=== PATIENT | male | born 1990 | race African-American/Black ===

== ENCOUNTER 2016-09-23 14:16 | Emergency (ER) | payer BC ==
[~2016-09-23] VITALS: Ht 175.3 cm; Wt 63.5 kg
--- NOTE | 2016-09-23 14:51 | PHYS DOC ---
Adult General Chief Complaint Chief Complaint: ABDOMINAL PAIN HPI HPI Patient is a 26-year-old male who states "I think I might have chlamydia again" . Patient was "with a girl" a week or so ago and now he has some pain in his right groin and around his right testicle and also some discomfort when he urinates. Denies discharge. Denies hematuria. The last time he had this, he was diagnosed with chlamydia, he was treated with antibiotics and his symptoms cleared up. Patient denies fever or chills. Denies nausea or vomiting. Patient is in good general health, no known drug allergies. Review of Systems Review of Systems Constitutional: Denies fever or chills [] GI: Denies abdominal pain, nausea, vomiting, bloody stools or diarrhea [] : As in history of present illness Allergies Allergies Allergies Coded Allergies Type Severity Reaction Last Updated Verified No Known Drug Allergies 09/23/16 No Physical Exam Physical Exam Constitutional: Well developed, well nourished, no acute distress, non-toxic appearance. Alert, mentating normally. HENT: Normocephalic, atraumatic, bilateral external ears normal, nose normal. [ ] Eyes: conjunctiva normal, no discharge. [] Neck: Normal range of motion, no stridor. [] : Normal circumcised male, testes descended bilaterally. No swelling of scrotum or testicles. Mildly tender along the right epididymis which is not enlarged. No palpable or visible abnormalities of the . Skin: Warm, dry, no erythema, no rash. [] Extremities: No tenderness, no cyanosis, no clubbing, ROM intact, no edema. [] Neurologic: Alert and oriented X 3, normal motor function, normal sensory function, no focal deficits noted. [] EKG EKG [] Radiology/Procedures Radiology/Procedures [] Course & Med Decision Making Course & Med Decision Making Pertinent Labs and Imaging studies reviewed. (See chart for details) Urine was sent for GC and chlamydia. I gave the option to the patient of waiting for results are being treated today, he chose the latter. See instructions for plan. [] Dragon Disclaimer Dragon Disclaimer This chart was dictated in whole or in part using Voice Recognition software in a busy, high-work load, and often noisy Emergency Department environment. It may contain unintended and wholly unrecognized errors or omissions. Departure Departure: Impression: Primary Impression: STD (male) Disposition: 01 HOME, SELF-CARE Condition: IMPROVED Patient Instructions: Chlamydia Test, Gonorrhea Culture Additional Instructions: Today in the ER, you were treated for gonorrhea and chlamydia. If the test comes back positive, any recent partner should be treated. Use condoms for 1 week to make sure the antibiotics have had a chance to work. FAM MAK MD Sep 23, 2016 14:51
[2016-09-23 15:07] LABS: BACTERIA,URINE 0 /HPF (0-FEW); BILIRUBIN,URINE NEG (NEG); CLARITY,URINE CLEAR; COLOR,URINE YELLOW; GLUCOSE,URINE NEG (NEG); NITRITE,URINE NEG (NEG); SQUAMOUS EPITHELIAL CELL,UR OCC /LPF; UROBILINOGEN,URINE 0.2 mg/dL (0.2 mg/dL)
[2016-09-23 15:08] LABS: RBC,URINE RARE /HPF (0-2); WBC,URINE OCC /HPF (0-4)
[2016-09-23] MEDS ORDERED: AZITHROMYCIN 250 MG TABLET. PO ONE (15:15)
[2016-09-23] MEDS ORDERED: cefTRIAXone IM 250 MG VIAL IM ONE (15:15)
== END 2016-09-23 15:21 | disposition home or self-care (01) ==
LOC: ER 14:16
DX: A64 Unspecified sexually transmitted disease (principal)
CPT/HCPCS: 81001; 96372; 99283; J0456; J0696

== ENCOUNTER 2016-09-28 07:15 | Emergency (ER) | payer BC ==
[~2016-09-28] VITALS: Ht 175.3 cm; Wt 63.5 kg
[2016-09-28 07:20] VITALS: BP 145/82
--- NOTE | 2016-09-28 07:36 | PHYS DOC ---
Past History Past Medical History: No Pertinent History Past Surgical History: No Surgical History Smoking: Cigarettes Alcohol Use: Rarely Drug Use: None Adult General Chief Complaint Chief Complaint: STD exposure HPI HPI 26-year-old male presenting to the emergency department today after being exposed to an STD. He reports he recently had intercourse with a female that currently has symptoms of an STD. He recently got treated about a week ago and returns for another treatment. He denies any drainage fevers or chills. Onset today. Location tract. Duration intermittent. No alleviating factors present. Review of systems is negative for drainage rashes ulcerations or lesions. All other review of systems is negative unless otherwise noted in history of present illness. ED course: 26-year-old gentleman presenting after being exposed to an STD. He was given medications for treatment prophylactically then subsequently discharged home. The patient was then discharged home in stable condition to follow up with their primary care physician over the next 2-3 days. They were to return if their symptoms worsened or if they were concerned for any reason. [id number] discharge instructions and return precautions were given. Patient' s questions were answered to their satisfaction. Patient is comfortable plan. Review of Systems Review of Systems SEE ABOVE. Allergies Allergies Allergies Coded Allergies Type Severity Reaction Last Updated Verified No Known Drug Allergies 09/23/16 No Physical Exam Physical Exam Constitutional: Well developed, well nourished, no acute distress, non-toxic appearance. [] HENT: Normocephalic, atraumatic, bilateral external ears normal, oropharynx moist, no oral exudates, nose normal. [] Eyes: PERRLA, EOMI, conjunctiva normal, no discharge. [] Neck: Normal range of motion, no tenderness, supple, no stridor. [] Cardiovascular:Heart rate regular rhythm, no murmur [] Lungs & Thorax: Bilateral breath sounds clear to auscultation [] Abdomen: Bowel sounds normal, soft, no tenderness, no masses, no pulsatile masses. [] Skin: Warm, dry, no erythema, no rash. [] Back: No tenderness, no CVA tenderness. [] Extremities: No tenderness, no cyanosis, no clubbing, ROM intact, no edema. [] Neurologic: Alert and oriented X 3, normal motor function, normal sensory function, no focal deficits noted. [] Psychologic: Affect normal, judgement normal, mood normal. [] EKG EKG [] Radiology/Procedures Radiology/Procedures [] Course & Med Decision Making Course & Med Decision Making Pertinent Labs and Imaging studies reviewed. (See chart for details) [] Dragon Disclaimer Dragon Disclaimer This chart was dictated in whole or in part using Voice Recognition software in a busy, high-work load, and often noisy Emergency Department environment. It may contain unintended and wholly unrecognized errors or omissions. Departure Departure: Impression: Primary Impression: STD exposure Disposition: HOME, SELF-CARE Condition: STABLE Referrals: PCP,NO (PCP) Patient Instructions: Safe Sex Additional Instructions: Thank you for allowing us to participate in your care today. Followup with your primary care physician in 3 days if your symptoms do not improve. Call your Primary Doctor tomorrow and inform them of your visit today. If you do not have a primary care provider you can ask for a list of our primary care providers. Return to the emergency department you have any new or concerning findings. This should be evaluated by the primary care physician and any necessary consulting services for continued management within a few days after discharge. Return to emergency room if you have any new or concerning symptoms including but not limited to fever, chills, nausea, vomiting, intractable pain, any new rashes, chest pain, shortness of air, uncontrolled bleeding, difficulty breathing, and/or vision loss. LILIBETH KIRAN MD Sep 28, 2016 07:36
[2016-09-28] MEDS ORDERED: cefTRIAXone IM 250 MG VIAL IM ONE (08:00)
[2016-09-28] MEDS ORDERED: AZITHROMYCIN 250 MG TABLET. PO ONE (08:00)
== END 2016-09-28 08:13 | disposition home or self-care (01) ==
LOC: ER 07:15
DX: Z20.2 Contact with and (suspected) exposure to infections with a predominantly sexual mode of transmission (principal); F17.210 Nicotine dependence, cigarettes, uncomplicated
CPT/HCPCS: 96372; 99283; J0456; J0696

== ENCOUNTER 2017-06-13 07:46 | Emergency (ER) | payer BC ==
[~2017-06-13] VITALS: Ht 175.3 cm; Wt 70.3 kg
[2017-06-13] MEDS ORDERED: KETOROLAC 60 MG/2 ML VIAL. IM ONE (08:30)
--- NOTE | 2017-06-13 08:37 | RAD ---
INDICATION: Pain, injury. TECHNIQUE: 3 views of the left foot are submitted for review. No comparison is available. FINDINGS: There is no fracture or dislocation. There is no osseous lesion. There is no soft tissue swelling. IMPRESSION: Negative for fracture. Electronically signed by: Darien Morales MD (06/13/2017 8:34 AM) [id number]
[2017-06-13] MEDS ORDERED: IBUP800T19 PO (08:45)
--- NOTE | 2017-06-13 08:45 | PHYS DOC ---
Past History Past Medical History: No Pertinent History Past Surgical History: No Surgical History Smoking: Cigarettes Alcohol Use: Occasionally Drug Use: Marijuana Adult General Chief Complaint Chief Complaint: FOOT INJURY PAIN HPI HPI 26-year-old male patient states he twisted his left foot this morning at 1:30 AM when he stepped inside a ditch without having a fall or other injuries. Patient state pain getting force this morning and was not able to walk. Patient borrowed crutches from a neighbor and brought in to ER by a relative. Patient rated his pain 9/10 and denies focal neuro deficit and other injuries. Review of Systems Review of Systems Constitutional: Denies fever or chills [] Eyes: Denies change in visual acuity, redness, or eye pain [] HENT: Denies nasal congestion or sore throat [] Respiratory: Denies cough or shortness of breath [] Cardiovascular: No additional information not addressed in HPI [] GI: Denies abdominal pain, nausea, vomiting, bloody stools or diarrhea [] : Denies dysuria or hematuria [] Musculoskeletal: Denies back pain , reports joint pain [] Integument: Denies rash or skin lesions [] Neurologic: Denies headache, focal weakness or sensory changes [] Endocrine: Denies polyuria or polydipsia [] All other systems were reviewed and found to be within normal limits, except as documented in this note. Current Medications Current Medications Current Medications Medications (Trade) Dose Ordered Sig/Niurka Start Time Stop Time Status Last Admin Dose Admin Ketorolac Tromethamine (Toradol) 60 mg 1X ONCE 06/13/17 08:30 06/13/17 08:31 DC 06/13/17 08:15 60 MG Allergies Allergies Allergies Coded Allergies Type Severity Reaction Last Updated Verified No Known Drug Allergies 09/23/16 No Physical Exam Physical Exam Constitutional: Well developed, well nourished, mild distress, non-toxic appearance, smell of alcohol on breath. [] HENT: Normocephalic, atraumatic Eyes: PERRLA, EOMI, conjunctiva normal, no discharge. [] Neck: Normal range of motion, no tenderness, supple, no stridor. [] Cardiovascular:Heart rate regular rhythm, no murmur [] Lungs & Thorax: Bilateral breath sounds clear to auscultation [] Skin: Warm, dry, no erythema, no rash. [] Extremities: Left foot without deformity or edema, tenderness in left fifth metatarsal area Neurologic: Alert and oriented X 3, normal motor function, normal sensory function, no focal deficits noted. [] Psychologic: Affect normal, judgement normal, mood normal. [] Current Patient Data Vital Signs Vital Signs Date Time Temp Pulse Resp B/P (MAP) Pulse Ox O2 Delivery O2 Flow Rate FiO2 06/13/17 07:46 98.2 106 20 96 Room Air EKG EKG [] Radiology/Procedures Radiology/Procedures [] [address] [address] IMAGING REPORT Signed PATIENT: PRASANTH REYES ACCOUNT: [id number] : 1990 LOCATION: ER AGE: 26 SEX: M EXAM STATUS: REG ER ORD. PHYSICIAN: TAY RAI MD REASON: injury PROCEDURE: FOOT LEFT 3V INDICATION: Pain, injury. TECHNIQUE: 3 views of the left foot are submitted for review. No comparison is available. FINDINGS: There is no fracture or dislocation. There is no osseous lesion. There is no soft tissue swelling. IMPRESSION: Negative for fracture. Electronically signed by: Darien Morales MD (06/13/2017 8:34 AM) [facility] DICTATED AND SIGNED BY: DARIEN MORALES MD DATE: 06/13/17 0831 CC: TAY RAI MD; PCP,NO ~ Course & Med Decision Making Course & Med Decision Making Pertinent Imaging studies reviewed. (See chart for details) Evaluation of patient in ER showed 26-year-old male patient with injury to left foot without deformity or edema. Left foot x-ray did not show fracture. Patient treated with Toradol and felt better. Cam wrap was applied in ER and patient instructed to continue using his home crutches. Dragon Disclaimer Dragon Disclaimer This electronic medical record was generated, in whole or in part, using a voice recognition dictation system. Departure Departure: Impression: Primary Impression: Injury of left foot Additional Impressions: Tobacco abuse Tobacco abuse counseling Disposition: HOME, SELF-CARE (At 0844) Condition: IMPROVED Referrals: PCP,RAFFAELE (PCP) Patient Instructions: Contusion, Smoking Cessation Additional Instructions: Apply ice on the affected area Follow-up with your primary care physician in 3-5 days Return to ER if not getting better Scripts Ibuprofen (IBUPROFEN) 800 Mg Tablet 1 TAB PO TID, #30 TAB Prov: TAY RAI MD 06/13/17 Problem Qualifiers TAY RAI MD Jun 13, 2017 08:45
[2017-06-13 08:50] VITALS: BP 121/77
== END 2017-06-13 08:50 | disposition home or self-care (01) ==
LOC: ER 07:46
DX: S99.922A Unspecified injury of left foot, initial encounter (principal); F17.210 Nicotine dependence, cigarettes, uncomplicated; F12.10 Cannabis abuse, uncomplicated; Z71.6 Tobacco abuse counseling; X50.1XXA Overexertion from prolonged static or awkward postures, initial encounter; Y93.89 Activity, other specified; Y99.8 Other external cause status; Y92.89 Other specified places as the place of occurrence of the external cause
CPT/HCPCS: 73630; 96372; 99284; J1885

== ENCOUNTER 2018-01-20 13:38 | Emergency (ER) | payer BC ==
[~2018-01-20] VITALS: Ht 175.3 cm; Wt 68.0 kg
[~2018-01-20 13:38] MED LIST: IBUP800T19 PO
[2018-01-20 13:48] VITALS: BP 120/70
[2018-01-20] MEDS ORDERED: cefTRIAXone IM 250 MG VIAL IM ONE (14:00)
[2018-01-20] MEDS ORDERED: AZITHROMYCIN 250 MG TABLET. PO ONE (14:00)
--- NOTE | 2018-01-20 14:09 | PHYS DOC ---
Past History Past Medical History: No Pertinent History Past Surgical History: No Surgical History Smoking: Cigarettes Alcohol Use: Occasionally Drug Use: Marijuana Adult General Chief Complaint Chief Complaint: STD test [facility] Patient is a 27 year old male who presents with feeling of exposure to STD. Patient states his girlfriend 4 months was diagnosed with gonorrhea and asking for diagnosis and treatment of STD. Patient denies urinary symptoms, penile discharge, nausea and vomiting, abdominal pain, fever and chills. Patient had history of chlamydia previously. Review of Systems Review of Systems Constitutional: Denies fever or chills [] Eyes: Denies change in visual acuity, redness, or eye pain [] HENT: Denies nasal congestion or sore throat [] Respiratory: Denies cough or shortness of breath [] Cardiovascular: No additional information not addressed in HPI [] GI: Denies abdominal pain, nausea, vomiting, bloody stools or diarrhea [] : Denies dysuria or hematuria [] Musculoskeletal: Denies back pain or joint pain [] Integument: Denies rash or skin lesions [] Neurologic: Denies headache, focal weakness or sensory changes [] Endocrine: Denies polyuria or polydipsia [] All other systems were reviewed and found to be within normal limits, except as documented in this note. Current Medications Current Medications Current Medications Medications (Trade) Dose Ordered Sig/Niurka Start Time Stop Time Status Last Admin Dose Admin Azithromycin (Zithromax) 1,000 mg 1X ONCE 01/20/18 14:00 01/20/18 14:02 DC Ceftriaxone Sodium (Rocephin Im) 250 mg 1X ONCE 01/20/18 14:00 01/20/18 14:02 DC Allergies Allergies Allergies Coded Allergies Type Severity Reaction Last Updated Verified No Known Drug Allergies 09/23/16 No Physical Exam Physical Exam Constitutional: Well developed, well nourished, no acute distress, non-toxic appearance. [] HENT: Normocephalic, atraumatic. Eyes: PERRLA, EOMI, conjunctiva normal, no discharge. [] Neck: Normal range of motion, no tenderness, supple, no stridor. [] Cardiovascular:Heart rate regular rhythm, no murmur [] Lungs & Thorax: Bilateral breath sounds clear to auscultation [] Abdomen: Bowel sounds normal, soft, no tenderness, no masses, no pulsatile masses. [] Skin: Warm, dry, no erythema, no rash. [] Back: No tenderness, no CVA tenderness. [] Extremities: No tenderness, no cyanosis, no clubbing, ROM intact, no edema. [] Neurologic: Alert and oriented X 3, normal motor function, normal sensory function, no focal deficits noted. [] Psychologic: Affect normal, judgement normal, mood normal. [] EKG EKG [] Radiology/Procedures Radiology/Procedures [] Course & Med Decision Making Course & Med Decision Making Evaluation of patient in ER showed 27-year-old male patient presented to ER after exposure to STD. Urine test for STD evaluation was obtained and patient treated with Rocephin and Zithromax. Patient instructed to avoid of unprotected sex. Dragon Disclaimer Dragon Disclaimer This electronic medical record was generated, in whole or in part, using a voice recognition dictation system. Departure Departure: Impression: Primary Impression: Encounter for assessment of STD exposure Additional Impressions: Tobacco abuse Tobacco abuse counseling Disposition: HOME, SELF-CARE Condition: STABLE Referrals: PCP,RAFFAELE (PCP) Patient Instructions: Sexuality and Disability, Smoking Cessation, Tips For Success Additional Instructions: Evaluation of patient in ER showed 27-year-old male patient presented to ER after his girlfriend was diagnosed with gonorrhea and asking for agnostic test and treatment. Patient treated with Zithromax and Rocephin and instructed to follow-up with primary care physician for test results. Problem Qualifiers TAY RAI MD Jan 20, 2018 14:09
== END 2018-01-20 14:29 | disposition home or self-care (01) ==
LOC: ER 13:38
DX: Z20.2 Contact with and (suspected) exposure to infections with a predominantly sexual mode of transmission (principal); F17.210 Nicotine dependence, cigarettes, uncomplicated; Z71.6 Tobacco abuse counseling
CPT/HCPCS: 36415; 87491; 87591; 96372; 99284; J0456; J0696

== ENCOUNTER 2018-08-16 12:11 | Emergency (ER) | payer BC, OTHER ==
[~2018-08-16] VITALS: Ht 175.3 cm; Wt 68.0 kg
--- NOTE | 2018-08-16 12:39 | PHYS DOC ---
Past History Past Medical History: No Pertinent History Past Surgical History: No Surgical History Smoking: Cigarettes Alcohol Use: None Drug Use: Marijuana, Methamphetamine Adult General Chief Complaint Chief Complaint: TESTICULAR PAIN OR INJURY HPI HPI Patient is a 28-year-old male presents complaining of bilateral testicular pain for the past 2-3 weeks. Worse today. He is been treating the pain with marijuana and methamphetamine without any significant improvement. Denies any dysuria. Denies any weight change. Denies any trauma. Denies any blood in the urine. No nausea or vomiting. Reports that the pain is moderate to severe in intensity.[] Review of Systems Review of Systems Constitutional: Denies fever or chills [] Eyes: Denies change in visual acuity, redness, or eye pain [] HENT: Denies nasal congestion or sore throat [] Respiratory: Denies cough or shortness of breath [] Cardiovascular: No chest pain or palpitations[] GI: Denies abdominal pain, nausea, vomiting, bloody stools or diarrhea [] : Denies dysuria or hematuria [] Musculoskeletal: Denies back pain or joint pain [] Integument: Denies rash or skin lesions [] Neurologic: Denies headache, focal weakness or sensory changes [] Endocrine: Denies polyuria or polydipsia [] All other systems were reviewed and found to be within normal limits, except as documented in this note. Allergies Allergies Allergies Coded Allergies Type Severity Reaction Last Updated Verified No Known Drug Allergies 08/16/18 No Physical Exam Physical Exam Constitutional: Well developed, well nourished, no acute distress, non-toxic appearance. [] HENT: Normocephalic, atraumatic, bilateral external ears normal, oropharynx moist, no oral exudates, nose normal. [] Eyes: PERRLA, EOMI, conjunctiva normal, no discharge. [] Neck: Normal range of motion, no tenderness, supple, no stridor. [] Cardiovascular:Heart rate regular rhythm, no murmur [] Lungs & Thorax: Bilateral breath sounds clear to auscultation [] Abdomen: Bowel sounds normal, soft, no tenderness, no masses, no pulsatile masses. exam: Normal male, bilateral descended testes, tenderness posterior aspect of bilateral testes. No hernia. No urethral discharge. No significant inguinal lymphadenopathy present[] Skin: Warm, dry, no erythema, no rash. [] Back: No tenderness, no CVA tenderness. [] Extremities: No tenderness, no cyanosis, no clubbing, ROM intact, no edema. [] Neurologic: Alert and oriented X 3, normal motor function, normal sensory function, no focal deficits noted. [] Psychologic: Affect normal, judgement normal, mood normal. [] Current Patient Data Vital Signs Vital Signs Date Time Temp Pulse Resp B/P (MAP) Pulse Ox O2 Delivery O2 Flow Rate FiO2 08/16/18 12:22 97.8 75 18 99 Room Air EKG EKG [] Radiology/Procedures Radiology/Procedures Scrotal ultrasound, 08/16/2018: HISTORY: Testicular pain The right testicle measures 4.4 x 2.6 x 2.5 cm while the left testicle measures 4.0 x 3.1 x 2.1 cm. There is symmetric blood flow within the testicles. No testicular mass is evident. There is a small left varicocele. Several tiny epididymal cysts are noted bilaterally. The largest of these measure only 3-4 mm. No significant hydrocele is seen. IMPRESSION: 1. No testicular abnormality is detected. 2. Tiny bilateral epididymal cysts. 3. Left varicocele. [] Course & Med Decision Making Course & Med Decision Making Pertinent Labs and Imaging studies reviewed. (See chart for details) ED course: Patient arrived, was placed in bed, and tolerated exam well. He was transported to and from [place] emergency department with any complications. After the return of the laboratory and imaging studies, these were discussed with the patient who voiced understanding. All questions were answered. He did achieve reasonable pain control with the medication administered. He was discharged in improved condition. Medical decision making: There is no evidence of torsion, epididymitis, nor urinary tract infection. Patient is nontoxic. No evidence of Steven's gangrene. No evidence of any surgical pathology at this time.[] Dragon Disclaimer Dragon Disclaimer This electronic medical record was generated, in whole or in part, using a voice recognition dictation system. Departure Departure: Impression: Primary Impression: Testicular/scrotal pain Disposition: 01 HOME, SELF-CARE Condition: IMPROVED Referrals: PCPRAFFAELE (PCP) Patient Instructions: Groin Strain, Testicular Problems and Self-Exam Additional Instructions: Take the medication as prescribed. Drink plenty of fluids. Follow-up with your regular doctor in 2 days. If you do not have a regular doctor list of local clinics will be provided for you. Do not use any drugs or medications that are not prescribed for you, they may kill you! Return to the ER if worsening pain or any other concerns. Scripts Meloxicam (MELOXICAM) 7.5 Mg Tablet 7.5 MG PO DAILY for PAIN, #20 TAB Prov: EDDIE POND DO 08/16/18 EDDIE POND DO Aug 16, 2018 12:39
[2018-08-16] MEDS: KETOROLAC 15 MG/ML VIAL. IM ONE (13:09)
[2018-08-16 13:30] LABS: BILIRUBIN,URINE NEG (NEG); CLARITY,URINE CLEAR; COLOR,URINE YELLOW; GLUCOSE,URINE NEG (NEG); NITRITE,URINE NEG (NEG); UROBILINOGEN,URINE 0.2 mg/dL (0.2 mg/dL)
--- NOTE | 2018-08-16 13:30 | RAD ---
Scrotal ultrasound, 08/16/2018: HISTORY: Testicular pain The right testicle measures 4.4 x 2.6 x 2.5 cm while the left testicle measures 4.0 x 3.1 x 2.1 cm. There is symmetric blood flow within the testicles. No testicular mass is evident. There is a small left varicocele. Several tiny epididymal cysts are noted bilaterally. The largest of these measure only 3-4 mm. No significant hydrocele is seen. IMPRESSION: 1. No testicular abnormality is detected. 2. Tiny bilateral epididymal cysts. 3. Left varicocele. Electronically signed by: Slava Zimmerman MD (08/16/2018 1:27 PM) [facility]
[2018-08-16 13:31] LABS: BACTERIA,URINE 0 /HPF (0-FEW); RBC,URINE OCC /HPF (0-2); SQUAMOUS EPITHELIAL CELL,UR OCC /LPF
[2018-08-16] MEDS ORDERED: MELO7.5T29 PO (14:19)
[2018-08-16 14:20] VITALS: BP 123/64
== END 2018-08-16 14:24 | disposition home or self-care (01) ==
LOC: ER 12:11
DX: N50.812 Left testicular pain (principal); N50.811 Right testicular pain; I86.1 Scrotal varices; N50.3 Cyst of epididymis; F17.210 Nicotine dependence, cigarettes, uncomplicated; F12.10 Cannabis abuse, uncomplicated; F15.10 Other stimulant abuse, uncomplicated
CPT/HCPCS: 36415; 76870; 81001; 87491; 87591; 96372; 99285; J1885

== ENCOUNTER → 2020-12-30 | Outpatient (CLI) | payer OTHER ==
[~2020-12-30] MED LIST changes: +MELO7.5T29 PO
== END ==
LOC: LAB 14:13
PROVIDERS: ATTEND Nurse Practitioner Family
DX: Z72.51 High risk heterosexual behavior (principal)
CPT/HCPCS: 36415; 86695; 87491; 87591